=== PATIENT | female | born 1970 | race Caucasian/White ===

== ENCOUNTER → 2023-06-27 13:39 | Outpatient (REF) | payer OTHER, SELFPAY | LOC: WDC 13:39 | PROVIDERS: ATTENDING PHYSICIAN Surgery; FAMILY PHYSICIAN Internal Medicine | DX: R92.2 Inconclusive mammogram (principal) | CPT/HCPCS: 76641 ==

== ENCOUNTER → 2023-08-17 07:11 | Outpatient (REF) | payer OTHER, SELFPAY | LOC: HWWDC 07:11 | PROVIDERS: ATTENDING PHYSICIAN Radiology Radiation Oncology; FAMILY PHYSICIAN Family Medicine | DX: C50.412 Malignant neoplasm of upper-outer quadrant of left female breast (principal); Z17.0 Estrogen receptor positive status [ER+]; Z12.31 Encounter for screening mammogram for malignant neoplasm of breast | CPT/HCPCS: 77063; 77067 ==

== ENCOUNTER → 2023-08-23 07:11 | Outpatient (REF) | payer OTHER, SELFPAY | LOC: HWRCS 07:11 | PROVIDERS: ATTENDING PHYSICIAN Internal Medicine; FAMILY PHYSICIAN Internal Medicine | DX: I49.3 Ventricular premature depolarization (principal) | CPT/HCPCS: 93306 ==

== ENCOUNTER → 2024-04-01 13:53 | Outpatient (REF) | payer OTHER, SELFPAY | LOC: WDC 13:53 | PROVIDERS: ATTENDING PHYSICIAN Surgery; FAMILY PHYSICIAN Family Medicine | DX: R92.8 Other abnormal and inconclusive findings on diagnostic imaging of breast (principal); R92.2 Inconclusive mammogram | CPT/HCPCS: 76642 ==

== ENCOUNTER 2024-04-28 18:40 | Emergency (ER) | payer OTHER, SELFPAY ==
[2024-04-28 18:52] VITALS: BP 146/93
--- NOTE | 2024-04-28 18:58 | ED.GENMED ---
History of Present Illness
General
Chief Complaint: Musculo-Skeletal Complaint
Source: patient
Exam Limitations: none
Time Seen by Provider: 04/28/24 18:58
Nursing documentation reviewed up to this point in time: agreed with
History of Present Illness
History of Present Illness:
53 yr old female presents to the ER complaining of right ankle injury and left knee injury. She was walking in the parking lot to visit her mom and tripped and fell. She twisted her right ankle and hit her left knee. She has small abrasion to her
left knee shots up-to-date. She denies any other injuries.
Past History
Past History
ED Past Medical History: HTN, Other (Heart palpitations related to PVCs/PACs) and Other (interstitial cystitis)
ED Past Surgical History: (�2) and Other (Left breast biopsy)
Social History
Tobacco: Non-smoker
Alcohol: Occasional (rare)
Drug: None
Personal:
Living: with family
Employment: Employed
Family History
Family History: Hypertension and CAD
Review of Systems
Review of Systems
Allergies reviewed?: Yes
All Other Systems: ROS reviewed and negative except as documented in HPI and ROS
Constitutional: Reports no symptoms
Musculoskeletal: Reports other (right ankle swelling/injury , left knee injury/abrasion)
Skin: Reports no symptoms
Neurological: Denies headache (Denies hitting head)
Psychiatric: Reports no symptoms
Phy Exam
General Physical Exam
General Presentation: no apparent distress
General age: appears stated age
General Skin: warm and dry
General Habitus: normal
General Mental: alert
General Hydration: appears well hydrated
Neurological Exam
Neurological Exam: alert and oriented x3
Musculoskeletal Exam
Musculoskeletal Exam: other (Right ankle with mild swelling tenderness to the lateral malleolus no proximal fifth metatarsal tenderness no abrasions. Left knee very minimally tender good range of motion celebration)
Skin Exam
Skin Exam: normal color and warm/dry
Psychiatric Exam
Psychiatric Exam: normal mood/affect
Course
Orders/Labs/Results
Orders:
Orders
04/28/24 18:54
Ankle, Right 3 view CR [CR Ankle - Right Min 3 Views *] Urgent
Comment:
Reason For Exam: pain
CR Knee - Left 1 Or 2 Views Urgent
Reason For Exam: pain
Vital Signs
Initial and Last Documented VS:
Initial Vital Signs
Temp Pulse Resp BP Pulse Ox
97.8 F 87 16 146/93 99
04/28/24 18:52 04/28/24 18:52 04/28/24 18:52 04/28/24 18:52 04/28/24 18:52
Last Documented Vital Signs
Temp Pulse Resp BP Pulse Ox
97.8 F 87 16 146/93 99
04/28/24 18:52 04/28/24 18:52 04/28/24 18:52 04/28/24 18:52 04/28/24 18:52
MDM/Problems Addressed
Differential Diagnosis Includes:
Not limited to sprain strain contusion abrasion
MDM/Problems Addressed:
Patient with nondisplaced right distal fibula fracture; small abrasion to left knee no fracture on x-ray will DC with boot crutches limited weightbearing and outpatient Ortho follow-up
*Radiology
Radiology exam reviewed: radiology read reviewed
*Critical Care Note
Total Time (30-74mins, 75-104mins- exclusive of procedures): Not Applicable
ED Attending Note
-
Portions of this chart may have been created with voice recognition software.� Occasional wrong word or��sound alike� substitutions may have occurred due to the inherent limitations of voice recognition software.
Discharge Plan
Departure
Patient Disposition: Home (Routine Discharge)
Date of Disposition: 04/28/24
Time of Disposition: 20:14
Patient with high blood pressure during this ER visit?: Yes
Covid-19: Not Applicable
Discharge Problem:
Fracture of distal end of fibula, Contusion of knee, Abrasion
Instructions: Lower leg fracture, How to Use Crutches, Contusion (DC), BLOOD PRESSURE
Prescriptions:
No Action
diltiazem HCl [Tiazac] 360 mg Capsule,Extended Release 24 Hr
360 mg PO DAILY
rosuvastatin 5 mg Tablet
5 mg PO QPM
cholecalciferol (vitamin D3) [Vitamin D3] 125 mcg (5,000 unit) Tablet
125 mcg PO DAILY
alpha lipoic acid 600 mg Tablet
600 mg PO DAILY
magnesium 300 MG
300 mg PO DAILY
amitriptyline 10 mg Tablet
10 mg PO HS
[place] 3 Fish Oil
1 cap PO DAILY
Referrals:
Miguel Engel MD [Active] -
Activity Restrictions/Additional Instructions:
As discussed wear boot for support ;use crutches for ambulation do not bear full weight on right ankle. Keep elevated as much as possible. You may take ibuprofen if needed. Call orthopedics tomorrow for appointmen tin the next 2-3 days. You
May wash abrasions with soap and water. Return if any worsening of symptoms
Interventions
Interventions:
*Risk Screen - Suicide Last Done: 04/28/24 18:52
*General Assessment Last Done: 04/28/24 18:52
*Neglect/Abuse Screening Last Done: 04/28/24 18:52
*ED COVID-19 Vaccine History Last Done: 04/28/24 18:52
*Nursing Disposition Last Done: 04/28/24 20:37
Discharge Date and Time
Discharge Date/Time: 04/28/24 20:38
Print Language: SAO TOMEAN
== END 2024-04-28 20:38 | disposition home or self-care (01) ==
LOC: EMR 18:40
PROVIDERS: EMERGENCY PHYSICIAN Emergency Medicine; FAMILY PHYSICIAN Family Medicine
DX: S82.831A Other fracture of upper and lower end of right fibula, initial encounter for closed fracture (principal); S80.02XA Contusion of left knee, initial encounter; S80.212A Abrasion, left knee, initial encounter; W01.0XXA Fall on same level from slipping, tripping and stumbling without subsequent striking against object, initial encounter; I10 Essential (primary) hypertension
CPT/HCPCS: 99283; 73560; 73610

== ENCOUNTER → 2024-08-19 07:42 | Outpatient (REF) | payer OTHER, SELFPAY | LOC: WDC 07:42 | PROVIDERS: ATTENDING PHYSICIAN Radiology Radiation Oncology; FAMILY PHYSICIAN Family Medicine | DX: Z12.31 Encounter for screening mammogram for malignant neoplasm of breast (principal) | CPT/HCPCS: 77063; 77067 ==

== ENCOUNTER → 2024-08-25 08:54 | Outpatient (REF) | payer OTHER, SELFPAY | LOC: WDC 08:54 | PROVIDERS: ATTENDING PHYSICIAN Radiology Radiation Oncology; FAMILY PHYSICIAN Family Medicine | DX: R92.2 Inconclusive mammogram (principal); Z85.3 Personal history of malignant neoplasm of breast | CPT/HCPCS: 76641 ==

== ENCOUNTER → 2024-09-17 10:08 | Outpatient (REF) | payer OTHER, SELFPAY | LOC: HWRCS 10:08 | PROVIDERS: ATTENDING PHYSICIAN Internal Medicine; FAMILY PHYSICIAN Family Medicine | DX: R01.1 Cardiac murmur, unspecified (principal) | CPT/HCPCS: 93306 ==

== ENCOUNTER 2024-12-22 13:27 | Emergency (ER) | payer OTHER, SELFPAY ==
[2024-12-22 13:33] VITALS: BP 147/102
--- NOTE | 2024-12-22 14:56 | ED.GENMED ---
History of Present Illness
General
Chief Complaint: Anxiety
Source: patient and spouse
Exam Limitations: none
Time Seen by Provider: 12/22/24 14:37
Nursing documentation reviewed up to this point in time: agreed with
History of Present Illness
History of Present Illness:
Note:
CHIEF COMPLAINT(S)
Ringing in the ear and hearing loss, notably in the left ear.
HISTORY OF PRESENT ILLNESS
The patient is a 54-year-old female with a history of hearing loss accompanied by tinnitus (ringing in the ear), which she reports primarily affecting the left ear. The symptoms have been persistent and are described as loud and constant, making it
difficult for her to concentrate and perform daily activities effectively. She has undergone two ear examinations and sees a specialist in Ear, Nose, and Throat (ENT) who has conducted various evaluations, which have reportedly returned normal
results.
The patient is currently on blood pressure medication but denies the use of aspirin or ibuprofen. Recently, there has been an increase in her blood pressure, for which she has started on Lisinopril.
The patients mental health is significantly impacted by the chronic nature of her symptoms. She reports increasing anxiety and desperation, feeling that the sound is overwhelming. Of note, there was an event where the patient attempted an overdose
involving 20 tablets of Ambien and some Lorazepam as a means to make the ringing go away. The intent was described as trying to find relief from the noise.
PAST MEDICAL AND SURGICAL HISTORY
No specific past surgical history was referenced.
SOCIAL DETERMINANTS AFFECTING HEALTH
The patient is experiencing significant mental distress related to her ongoing symptoms. Concerns were mentioned regarding the impact of these symptoms on her mental health and daily functioning.
CURRENT MEDICATIONS
- Lisinopril for hypertension
Physical Exam
General: no apparent distress, not acutely ill, appears drowsy
Neck: supple. no meningeal signs. normal posterior pharynx
Heart: s1/s2 regular rate and rhythm, no murmur. equal radial
pulses.
HEENT: Pupils equal round reactive to light, EOMI
Lungs: no acute respiratory distress. clear bilaterally
Abdomen: normal bowel sounds. not tender. no CVAT
Neuro: alert and oriented. no focal neurological deficits cranial nerves II through XII intact
Skin: no rash
Psychiatric: well kept. interactive and cooperative
Extremities: no edema. no calf tenderness. negative homans. good distal pulses
PLAN
- Conduct blood tests and an electrocardiogram (EKG) to assess her current physical condition.
- Refer the patient for a psychiatric evaluation due to the recent suicide attempt.
- Consider inpatient care for further monitoring and stabilization.
- Discuss with crisis intervention specialists for support and possible therapeutic interventions.
DIFFERENTIAL DIAGNOSIS
The Differential Diagnosis includes, in no particular order and is not limited to:
1. Chronic tinnitus
2. Sensorineural hearing loss
3. Unilateral conductive hearing loss
4. Menieres disease
5. Depression with suicidal ideation
6. Anxiety disorder
7. Medication side effects
8. Blood pressure fluctuation impact on auditory symptoms
9. Occupational or noise-induced hearing damage
10. Vestibular schwannoma (acoustic neuroma)
CARE-UPDATE
12/22/24 - 15:59
Patient exhibits altered mental status, possibly due to overdose. Ingested 20 Ambien last night and a bottle of Xanax this morning. Reports of grogginess noted by . Immediate reassessment and potential intervention required.
Disposition:
SUMMARY OF ENCOUNTER
The patient was brought to the emergency department following a suicide attempt involving an overdose of Zolpidem (Ambien) and Alprazolam (Xanax). The overdose occurred due to distress from tinnitus and hearing loss, particularly affecting the left
ear. After evaluation, it was determined that laboratory tests will be conducted, and plans are in place to admit the patient to a psychiatric facility for further management of the suicide attempt.
DISPOSITION
Admit.
ASSESSMENT
1. Suicide attempt via overdose.
2. Tinnitus related to hearing loss.
PLAN
- Conduct laboratory tests to assess current health status.
- Supportive care and monitoring for overdose effects.
- Admission to a psychiatric facility for evaluation and management of suicidal ideation.
MEDICAL DECISION MAKING
- Number and Complexity of Problems Addressed: Chronic conditions affecting care include tinnitus, hearing loss, and increasing anxiety. Differential Diagnosis includes chronic tinnitus, sensorineural hearing loss, unilateral conductive hearing
loss, M�ni�res disease, depression with suicidal ideation, and anxiety disorder.
- Data:
- Category 1:
- Planning of laboratory tests for current assessment.
- Category 3:
- Decision to admit the patient to a psychiatric facility for further management.
DIAGNOSIS
- Suicide attempt due to drug overdose, ICD-10 code: X60.0
- Tinnitus related to hearing loss, ICD-10 code: H93.11
Past History
Past History
ED Past Medical History: HTN, Other (Heart palpitations related to PVCs/PACs) and Other (interstitial cystitis)
ED Past Surgical History: (�2) and Other (Left breast biopsy)
Social History
Tobacco: Non-smoker
Alcohol: Occasional (rare)
Drug: None
Personal:
Living: with family
Employment: Employed
Family History
Family History: Hypertension and CAD
Phy Exam
Physical Exam
Physical Exam:
.
Course
Orders/Labs/Results
Orders:
Orders
12/22/24 13:39
1:1 Observation - Suicide/ Violent Behavior As Directed
Crisis Consult Urgent
Reason for Consult: SI
12/22/24 14:56
Electrocardiogram (*1) Stat
Reason for Study: Other
Other Reason for Exam: overdose
EKG- Treatment ONCE
12/22/24 15:00
PSYCHIATRY CONSULT Urgent
Consulting Provider: Omar Olson
Was physician already notified: Yes
Reason for consult: suicide attempt
12/22/24 16:16
Acetaminophen Urgent
Alcohol Urgent
Complete Blood Count/With Diff Urgent
Comprehensive Metabolic Panel Urgent
Fentanyl, Urine Urgent
Salicylate Urgent
Urine Drug Abuse Screen Urgent
Date Specimen was Collected: 12/22/24
Time Specimen was Collected: 15:09
12/22/24 17:20
Potassium Chloride [KCl] 40 meq PO NOW STA
Abnormal Lab Results
12/22/24
16:16
MCHC 32.9 L g/dL
(33.0-37.0)
Absolute Neuts (auto) 8.3 H 10^3/uL
(1.4-6.5)
Neutrophils % 80.1 H %
(42.2-75.2)
Lymphocytes % 12.6 L %
(20.5-51.1)
Sodium 131 L mmol/L
(135-145)
Potassium 3.3 L mmol/L
(3.5-5.1)
Chloride 95 L mmol/L
(98-107)
Glucose 113 H mg/dl
(70-99)
Salicylates < 1.0 L mg/dl
(2.0-20.0)
Acetaminophen < 10 L ug/ml
(10-30)
U Benzodiazepines Scrn Positive H
(Negative)
12/22/24 16:16
12/22/24 16:16
Vital Signs
Initial and Last Documented VS:
Initial Vital Signs
Temp Pulse Resp BP Pulse Ox
97.7 F 90 18 147/102 99
12/22/24 13:33 12/22/24 13:33 12/22/24 13:33 12/22/24 13:33 12/22/24 13:33
Last Documented Vital Signs
Temp Pulse Resp BP Pulse Ox
98.2 F 81 18 129/83 98
12/22/24 19:23 12/22/24 19:23 12/22/24 16:09 12/22/24 19:23 12/22/24 19:23
*Pulse Oximetry
SaO2: 99
Oxygen Mode of Delivery: Room air
Patient hypoxic: no
*EKG
Interpreted by ED Provider?: Yes
EKG Intrepretation Date: 12/23/24
EKG Intrepretation Time: 15:27
Interpretation: normal
Comparison EKG: no changes
Heart Rate: 91
Rate: normal
Rhythm: sinus
[place]: normal axis
Interval: normal interval
QRS Pattern: normal QRS
Ischemia: no ischemia
*Critical Care Note
Total Time (30-74mins, 75-104mins- exclusive of procedures): Not Applicable
ED Attending Note
-
Portions of this chart may have been created with voice recognition software.� Occasional wrong word or��sound alike� substitutions may have occurred due to the inherent limitations of voice recognition software.
Discharge Plan
Departure
Patient Disposition: Psych Facility
Date of Disposition: 12/22/24
Time of Disposition: 16:03
Patient with high blood pressure during this ER visit?: Yes
Condition: Good
Discharge Problem:
Suicide attempt, Tinnitus, Xanax overdose, ambien overdose
Prescriptions:
No Action
diltiazem HCl [Tiazac] 360 mg Capsule,Extended Release 24 Hr
360 mg PO DAILY
rosuvastatin 5 mg Tablet
5 mg PO QPM
cholecalciferol (vitamin D3) [Vitamin D3] 125 mcg (5,000 unit) Tablet
125 mcg PO DAILY
alpha lipoic acid 600 mg Tablet
600 mg PO DAILY
magnesium 300 MG
300 mg PO DAILY
amitriptyline 10 mg Tablet
10 mg PO HS
[place] 3 Fish Oil
1 cap PO DAILY
Referrals:
Maryanne Bee DO [Family Provider, Family Practice]
Interventions
Interventions:
*Risk Screen - Suicide Last Done: 12/22/24 13:33
*General Assessment Last Done: 12/22/24 13:33
*Neglect/Abuse Screening Last Done: 12/22/24 16:17
*ED COVID-19 Vaccine History Last Done: 12/22/24 13:33
*ED Influenza Vaccine History Last Done: 12/22/24 13:33
*Nursing Disposition Last Done: 12/22/24 21:16
ED-Psychological Assessment Last Done: 12/22/24 18:29
Discharge Date and Time
Discharge Date/Time: 12/22/24 21:16
Print Language: LITHUANIAN
[2024-12-22 16:09] VITALS: BP 154/98
[2024-12-22 16:37] LABS: Hematocrit 43.4 % (37.0-47.0); Hemoglobin 14.3 g/dL (12.0-16.0); Mean Corp Hgb Conc. 32.9 g/dL (33.0-37.0); Mean Corpuscular Volume 92.9 fL (81.0-99.0); Nucleated Red Blood Cells % 0 %; Platelet Count 313 10^3/uL (130-400); Red Cell Dist. Width 12.1 % (11.5-14.5)
[2024-12-22 16:56] LABS: ALT (SGPT) 25 U/L (0-35); AST (SGOT) 24 U/L (14-36); Acetaminophen < 10 ug/ml (10-30); Albumin 4.9 g/dl (3.5-5.0); Alkaline Phosphatase 87 U/L (38-126); Blood Urea Nitrogen 11 mg/dl (7-17); Calcium 9.8 mg/dl (8.4-10.2); Carbon Dioxide 29 mmol/L (22-30); Chloride 95 mmol/L (98-107); Glucose 113 mg/dl (70-99); Potassium 3.3 mmol/L (3.5-5.1); Salicylate < 1.0 mg/dl (2.0-20.0); Sodium 131 mmol/L (135-145); Total Protein 8.0 g/dl (6.3-8.2); eGFR > 60.00
[2024-12-22] MEDS: KCL 40 MEQ PO (17:27)
--- NOTE | 2024-12-22 17:36 | CS.PSYCHR ---
Consult Summary - Psychiatry
-
pt seen by me in consultation for suicide attempt by ambien overdose
54 yo woman brought to ED from PCP office after telling PCP that she had taken 20 ambien and unknown number of ativan in suicide attempt. Pt states she has had intolerable tinnitus for several months to the point of deperation, can no longer take
it. Had decided last night to end it, reportedly wrote a note (unclear where it is or what it said) took ambien and went to bed. got up this morning, upset she had not , and took ativan. Had pre-existing doctor's appt and went there with .
was home at the time, had no idea any of this was happening. Aware that pt has been trouble by tinnitus, has been to neurologist, PCP, two ENT, mid level provider without benefit. Had been places on lexapro but only took for 3 days because it made
her BP go up. Has declined to see a psychiatrist as had repeatedly recommended.
Pt has had several stressors this year. Developed breast cancer, had lumpectomy and was on anti-estrogen therapy. Stopped this in hopes that it would solve the tinnitus problem.
Mother became ill and in hospice at pt's home in September. They had had a difficult relationship, mother was immigrant from [place], severe, harsh with pt.
Has two children, twins currently in senior year at [employer]. 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
One previous episode of mental health services in her 30s, tried to work on relationship with mother; not very helpful.
On exam pt is eerily calm, smiling as she talks about her overdose and her belief that nothing can help her. Willing to be hospitalized. Says she will jot do it again but not very convincing. No overt psychotic symptoms, some inconsistent history
which may be related ot overdose or lack of attention. Limited insight and judgment. Affect is incongruous, unclear if primary or related to sedative intoxication
Impression: major depression with somatic symptoms and overdose
Rec: will need inpatient psychiatric care. would 302 if decided she wants to leave. supports this.
[2024-12-22 19:23] VITALS: BP 129/83
== END 2024-12-22 21:16 ==
LOC: EMR 13:27
PROVIDERS: CONSULT PHYSICIAN Psychiatry & Neurology Psychiatry; EMERGENCY PHYSICIAN Emergency Medicine; FAMILY PHYSICIAN Family Medicine
DX: T14.91XA Suicide attempt, initial encounter (principal); H93.12 Tinnitus, left ear; T42.4X2A Poisoning by benzodiazepines, intentional self-harm, initial encounter; T42.6X1A Poisoning by other antiepileptic and sedative-hypnotic drugs, accidental (unintentional), initial encounter; Y92.9 Unspecified place or not applicable; F41.9 Anxiety disorder, unspecified; I10 Essential (primary) hypertension; Z82.49 Family history of ischemic heart disease and other diseases of the circulatory system
CPT/HCPCS: 99285; 80053; 80143; 80179; 80306; 80307; 82077; 85025; 93005

== ENCOUNTER → 2025-02-23 18:31 | Outpatient (REF) | payer OTHER, SELFPAY | LOC: MRI 18:31 | PROVIDERS: ATTENDING PHYSICIAN Family Medicine | DX: H93.13 Tinnitus, bilateral (principal); H90.A22 Sensorineural hearing loss, unilateral, left ear, with restricted hearing on the contralateral side | CPT/HCPCS: 70553; A9575 ==